=== PATIENT | male | born 1950 | race Caucasian/White ===

== ENCOUNTER 2021-02-05 07:09 | Inpatient (IN) | payer MEDICARE, BC ==
[2021-01-27 16:46] LABS: BASOPHILS % (AUTO) 0.8 % (0-1); EOSINOPHILS # (AUTO) 0.1 X10'3 (0-0.9); EOSINOPHILS % (AUTO) 2.4 % (0-6); LYMPHOCYTES # (AUTO) 2.2 X10'3 (1.1-4.8); LYMPHOCYTES % (AUTO) 42.1 % (21-51); MEAN CORPUSCULAR HEMOGLOBIN 27.5 PG (27.0-31.0); MEAN CORPUSCULAR HGB CONC 32.5 g/dL (33.0-36.5); MEAN CORPUSCULAR VOLUME 84.6 FL (78-98); MEAN PLATELET VOLUME 8.1 FL (7.4-10.4); MONOCYTES # (AUTO) 0.5 X10'3 (0-0.9); MONOCYTES % (AUTO) 9.7 % (2-12); NEUTROPHILS # (AUTO) 2.3 X10'3 (1.8-7.7); PRE OP HEMATOCRIT 39.4 % (42.0-52.0); PRE OP HEMOGLOBIN 12.8 g/dL (14.0-17.9); PRE OP PLATELET COUNT 240 X10'3 (140-440); RED BLOOD COUNT 4.66 X10'6 (4.70-6.10); RED CELL DISTRIBUTION WIDTH 13.7 % (11.5-14.5)
[2021-01-27 17:03] LABS: PRE OP INR 1.1 INR; PRE OP PROTIME 11.4 SECONDS (9.0-12.0)
[2021-01-27 17:07] LABS: ALBUMIN 3.9 G/DL (3.4-5.0); ALBUMIN/GLOBULIN RATIO 1.1 (1.1-1.5); ALKALINE PHOSPHATASE 72 IU/L (46-116); BLOOD UREA NITROGEN 17 MG/DL (7-18); BUN/CREATININE RATIO 12.1 (5.4-32.0); CALCIUM 9.1 MG/DL (8.5-10.1); CHLORIDE 106 MMOL/L (99-107); CREATININE 1.41 MG/DL (0.60-1.10); PRE OP ALT 23 U/L (30-65); PRE OP ANION GAP 8 (8-16); PRE OP AST 15 U/L (10-37); PRE OP BILIRUB, TOTAL 0.5 MG/DL (0.0-1.0); PRE OP GLUCOSE 76 MG/DL (70-104); PRE OP POTASSIUM 4.5 MMOL/L (3.4-5.1); PRE OP SODIUM 143 MMOL/L (135-145); TOTAL CARBON DIOXIDE 29.5 MMOL/L (24-32); TOTAL PROTEIN 7.3 G/DL (6.4-8.2); eGFR 50 ML/MIN
[2021-02-05] VITALS (27 sets, daily range): BP systolic 83–115; BP diastolic 50–76
[~2021-02-05] VITALS: Ht 175.3 cm; Wt 80.0 kg
[~2021-02-05 07:09] MED LIST: CALC-496 PO; LACT1CAP65 PO; OMEG-156 PO; RIVA20TA PO; ROSU5TAB PO; cefazolin/dext.iso 2gm/50ml 50 ML IV ONE; famotidine 20mg tablet PO ONE; ringers solution, lacted 1,000 ML IV SCH; vancomycin 1,500 MG in NS 300ml IV soln IV ONE
[2021-02-05] MEDS ORDERED: tetracaine 1% (10mg/ml) pres. free inj. ONE (07:27)
[2021-02-05] MEDS ORDERED: ondansetron/PF 4mg/2ml inj IV PRN ×2 (08:20→12:05)
[2021-02-05] MEDS ORDERED: morphine 2 MG/ML inj. syringe IV PRN (08:20)
[2021-02-05] MEDS ORDERED: ROPIVAcaine 0.2% (10 MG/5 ML) BOLUS INJECTION ADDCANAL PRN (08:20)
[2021-02-05] MEDS ORDERED: proCHLORperazine 10 MG/2 ml inj IV PRN (08:20)
[2021-02-05] MEDS ORDERED: ringers solution, lacted 1,000 ML IV SCH (08:20)
[2021-02-05] MEDS ORDERED: meperidine/PF 25mg/ml syringe IV PRN ×3 (08:20)
[2021-02-05] MEDS ORDERED: morphine 4 MG/ML inj SYRINge IV PRN (08:20)
[2021-02-05] MEDS ORDERED: vancomycin 1,000mg inj ONE (08:35)
[2021-02-05] MEDS ORDERED: MORPHINE IU ONE (08:35)
[2021-02-05] MEDS ORDERED: EPINEPHRINE IU ONE (08:35)
[2021-02-05] MEDS ORDERED: [UNRECOGNIZED DRUG - OTHER] IU ONE (08:35)
[2021-02-05] MEDS ORDERED: ROPIVACAINE IU ONE (08:35)
[2021-02-05] MEDS ORDERED: TRANEXAMIC ACID 1 GM IN NACL,ISO-OS 100 ML IV ONE (08:40)
[2021-02-05] MEDS ORDERED: MIDAZolam 1mg/ml 10ml vial ONE (09:26)
[2021-02-05] MEDS ORDERED: fentaNYL/PF 50MCG/1 ML 2ML syringe ONE (09:27)
[2021-02-05] MEDS ORDERED: Thrombin (Bovine) 5,000 unit vial TP ONE (09:48)
[2021-02-05] MEDS ORDERED: calcium chloride 100 MG/1 ML inj IV ONE (10:14)
[2021-02-05] MEDS ORDERED: ROPIVAcaine 0.5% (5mg/ml) 30ml vial ONE (11:15)
[2021-02-05] MEDS ORDERED: propofol inj 20 ML IV ONE (11:15)
[2021-02-05] MEDS ORDERED: diphenhydrAMINE 25mg capsule PO PRN ×2 (12:05)
[2021-02-05] MEDS ORDERED: HYDROmorphone 1 mg/ml syringe IV PRN (12:05)
[2021-02-05] MEDS ORDERED: HYDROmorphone inj. 0.5 MG/0.5 ML DISP.SYRIN IV PRN (12:05)
[2021-02-05] MEDS ORDERED: magnesium hydroxide 30ml (MOM) UD suspension PO PRN (12:05)
[2021-02-05] MEDS ORDERED: bisacodyl 10mg suppository rectal RC PRN (12:05)
[2021-02-05] MEDS ORDERED: acetaminophen 325mg tablet PO PRN (12:05)
[2021-02-05] MEDS ORDERED: oxyCODONE IR 5mg (immed. release) tablet PO PRN ×2 (12:05)
[2021-02-05] MEDS: ROPIVAcaine 0.2%/PF PUMP/bolus 545 ML ADDCANAL SCH (12:24)
--- NOTE | 2021-02-05 14:24 | NUR ---
Report called to receiving nurse. Transferred via SURGICAL BED WITH A BAG OF Belongings AND GLASSES. WITH PATIENT. . 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 SCDS ON BILATERALLY. Addendum: 02/05/21 at 1452 by Oscar Santa RN, RN Amended: Links added.
--- NOTE | 2021-02-05 14:27 | NUR ---
Patient in room [facility] IN 900. I have received report from Oscar baker and had the opportunity to ask questions and assume patient care.
[2021-02-05] MEDS: gabapentin 300mg capsule PO SCH ×2 (15:15→20:53)
[2021-02-05] MEDS: ketorolac tromethamine 15mg/ml inj. IV SCH ×2 (15:16→20:55)
[2021-02-05] MEDS: acetaminophen 325mg tablet PO SCH ×2 (15:17→20:53)
[2021-02-05] MEDS: potassium cl 20mEq in 1/2 NS 1,000 ML IV SCH ×2 (15:23→20:05)
[2021-02-05] MEDS: ceFAZolin/D5W- 1GM premix 50 ML IV SCH (15:25)
--- NOTE | 2021-02-05 19:14 | NUR ---
Problems reprioritized. Patient report given, questions answered & plan of care reviewed with Deborah Cabrera rn.
[2021-02-05] MEDS: vancomycin/NS 1 GM ADD-VANTAGE 250 ML IV SCH (20:55)
[2021-02-05] MEDS: sennosides 8.6mg tablet PO SCH (20:59)
[2021-02-06] VITALS: BP 95/57
[2021-02-06] MEDS: ceFAZolin/D5W- 1GM premix 50 ML IV SCH ×3 (00:23→16:23)
[2021-02-06] MEDS: acetaminophen 325mg tablet PO SCH ×4 (03:23→20:36)
[2021-02-06] MEDS: ketorolac tromethamine 15mg/ml inj. IV SCH ×2 (03:24→09:19)
[2021-02-06] MEDS: potassium cl 20mEq in 1/2 NS 1,000 ML IV SCH ×3 (03:28→20:39)
[2021-02-06 04:00] VITALS: BP 96/55
[2021-02-06 06:21] LABS: BASOPHILS % (AUTO) 0.5 % (0-1); EOSINOPHILS # (AUTO) 0.1 X10'3 (0-0.9); EOSINOPHILS % (AUTO) 2.4 % (0-6); HEMATOCRIT 26.2 % (42.0-52.0); HEMOGLOBIN 8.9 g/dl (14.0-17.9); LYMPHOCYTES # (AUTO) 1.5 X10'3 (1.1-4.8); LYMPHOCYTES % (AUTO) 25.1 % (21-51); MEAN CORPUSCULAR HEMOGLOBIN 28.5 PG (27.0-31.0); MEAN CORPUSCULAR VOLUME 83.9 FL (78-98); MEAN PLATELET VOLUME 8.5 FL (7.4-10.4); MONOCYTES # (AUTO) 0.9 X10'3 (0-0.9); MONOCYTES % (AUTO) 14.8 % (2-12); NEUTROPHILS # (AUTO) 3.5 X10'3 (1.8-7.7); NEUTROPHILS % (AUTO) 57.2 % (42-75); PLATELET COUNT 158 X10'3 (140-440); RED BLOOD COUNT 3.13 X10'6 (4.70-6.10); RED CELL DISTRIBUTION WIDTH 13.8 % (11.5-14.5); WHITE BLOOD COUNT 6.2 X10'3 (4.5-11.0)
--- NOTE | 2021-02-06 06:30 | NUR ---
Problems reprioritized. Patient report given, questions answered & plan of care reviewed with TRUDY WARD.
--- NOTE | 2021-02-06 06:41 | NUR ---
Patient in room [facility]. I have received report from Deborah Cabrera RN and had the opportunity to ask questions and assume patient care.
[2021-02-06 07:33] LABS: ANION GAP 7 (8-16); CHLORIDE 108 MMOL/L (99-107); POTASSIUM 4.9 MMOL/L (3.5-5.1); SODIUM 142 MMOL/L (135-145)
[2021-02-06 08:00] VITALS: BP 99/61
[2021-02-06] MEDS: enoxaparin 40mg/0.4ml syringe SQ SCH (09:18)
[2021-02-06] MEDS: calcium carbonate/vitamin D3 tablet PO SCH (09:19)
[2021-02-06] MEDS: OMEGA-3/DHA/EPA/FISH OIL 1 EACH CAPSULE.DR PO SCH (09:20)
[2021-02-06] MEDS: gabapentin 300mg capsule PO SCH ×3 (09:20→20:35)
[2021-02-06] MEDS: vancomycin/NS 1 GM ADD-VANTAGE 250 ML IV SCH (09:21)
[2021-02-06] MEDS: atorvastatin 20mg tablet PO SCH (09:21)
[2021-02-06] MEDS: lactobacillus rhamnosus 10,000 MMU CELLS/CAPSULE PO SCH (09:21)
[2021-02-06 12:00] VITALS: BP 103/66
--- NOTE | 2021-02-06 13:29 | NUR ---
Pt s/p right total knee arthroplasty seen at bedside provided with written and verbal protein education. RD contact information provided and pt encouraged to reach out if needed. Pt endorses a good appetite and denies food allergies or difficulty chewing/swallowing. Will continue to follow. Addendum: 02/06/21 at [address] Amended: Links added.
--- NOTE | 2021-02-06 18:40 | NUR ---
Problems reprioritized. Patient report given, questions answered & plan of care reviewed with Sarai WARD.
[2021-02-06 20:00] VITALS: BP 124/72
[2021-02-06 20:25] LABS: HEMATOCRIT 25.8 % (42.0-52.0); HEMOGLOBIN 8.9 g/dl (14.0-17.9); MEAN CORPUSCULAR HGB CONC 34.5 g/dL (33.0-36.5)
[2021-02-06 20:26] LABS: MEAN CORPUSCULAR HEMOGLOBIN 28.8 PG (27.0-31.0); MEAN CORPUSCULAR VOLUME 83.3 FL (78-98); MEAN PLATELET VOLUME 8.8 FL (7.4-10.4); PLATELET COUNT 163 X10'3 (140-440); RED CELL DISTRIBUTION WIDTH 13.9 % (11.5-14.5); WHITE BLOOD COUNT 5.6 X10'3 (4.5-11.0)
[2021-02-06] MEDS: sennosides 8.6mg tablet PO SCH (20:35)
[2021-02-06] MEDS: celeCOXIB 100mg capsule PO SCH (20:36)
[2021-02-07] VITALS: BP 124/73
[2021-02-07] MEDS: acetaminophen 325mg tablet PO SCH ×2 (01:51→08:42)
--- NOTE | 2021-02-07 06:02 | NUR ---
Problems reprioritized. Patient report given, questions answered & plan of care reviewed with ED Ballesteros.
--- NOTE | 2021-02-07 06:04 | NUR ---
Patient in room [facility]. I have received report from Sarai WARD and had the opportunity to ask questions and assume patient care.
[2021-02-07 06:29] LABS: BASOPHILS % (AUTO) 0.4 % (0-1); EOSINOPHILS # (AUTO) 0.3 X10'3 (0-0.9); EOSINOPHILS % (AUTO) 4.7 % (0-6); HEMATOCRIT 25.7 % (42.0-52.0); HEMOGLOBIN 8.6 g/dl (14.0-17.9); LYMPHOCYTES # (AUTO) 1.1 X10'3 (1.1-4.8); LYMPHOCYTES % (AUTO) 18.7 % (21-51); MEAN CORPUSCULAR HEMOGLOBIN 28.2 PG (27.0-31.0); MEAN CORPUSCULAR HGB CONC 33.3 g/dL (33.0-36.5); MEAN CORPUSCULAR VOLUME 84.8 FL (78-98); MEAN PLATELET VOLUME 8.7 FL (7.4-10.4); MONOCYTES # (AUTO) 0.7 X10'3 (0-0.9); MONOCYTES % (AUTO) 12.1 % (2-12); NEUTROPHILS # (AUTO) 3.9 X10'3 (1.8-7.7); NEUTROPHILS % (AUTO) 64.1 % (42-75); PLATELET COUNT 154 X10'3 (140-440); RED BLOOD COUNT 3.03 X10'6 (4.70-6.10); RED CELL DISTRIBUTION WIDTH 14.1 % (11.5-14.5); WHITE BLOOD COUNT 6.1 X10'3 (4.5-11.0)
[2021-02-07 08:00] VITALS: BP 112/71
[2021-02-07] MEDS: OMEGA-3/DHA/EPA/FISH OIL 1 EACH CAPSULE.DR PO SCH (08:41)
[2021-02-07] MEDS: celeCOXIB 100mg capsule PO SCH (08:43)
[2021-02-07] MEDS: calcium carbonate/vitamin D3 tablet PO SCH (08:43)
[2021-02-07] MEDS: lactobacillus rhamnosus 10,000 MMU CELLS/CAPSULE PO SCH (08:43)
[2021-02-07] MEDS: gabapentin 300mg capsule PO SCH ×2 (08:43→13:00)
[2021-02-07] MEDS: atorvastatin 20mg tablet PO SCH (08:43)
[2021-02-07] MEDS: potassium cl 20mEq in 1/2 NS 1,000 ML IV SCH (08:44)
[2021-02-07] MEDS: enoxaparin 40mg/0.4ml syringe SQ SCH (08:45)
[2021-02-07 11:00] VITALS: BP 104/65
[2021-02-07] MEDS ORDERED: acetaminophen 325mg tablet PO PRN (12:05)
[2021-02-07] MEDS: ROPIVAcaine 0.2%/PF PUMP/bolus 545 ML ADDCANAL SCH (14:05)
--- NOTE | 2021-02-07 16:20 | NUR ---
Patient discharge in stable condition, IV was taken out, no swelling, no redness not. Discharge instruction given to patient/spouse to include care/ management of On-Q pain pump. Patient/spouse verbalized understanding of instruction given. Patient left unit using a wheelchair, accompany by spouse to a private vehicle.
== END 2021-02-07 16:15 | disposition home or self-care (01) | DRG 470 ==
LOC: PAS IN 07:09 → UNDOADMIN 07:09 → PAS IN 12:11 → SUR 3N 15:20
PROVIDERS: ADMIT Orthopaedic Surgery; ATTEND Orthopaedic Surgery
PROC: 0SRC0J9 Replacement of Right Knee Joint with Synthetic Substitute, Cemented, Open Approach (ICD-10-PCS; principal; 2021-02-05 09:24)
DX: M17.11 Unilateral primary osteoarthritis, right knee (principal); D62 Acute posthemorrhagic anemia; D75.9 Disease of blood and blood-forming organs, unspecified; M25.761 Osteophyte, right knee; Z20.822 Contact with and (suspected) exposure to COVID-19
CPT/HCPCS: 36415; 73560; 80051; 80053; 82948; 85025; 85027; 85610; 85730; 87081; 97110; 97116; 97161; 97530; A4215; A7000; C1713; C1776; G0378; J0690; J1650; J1885; J2250; J2405; J2704; J2795; J3010; J3370; J3480; J7040; J7120; U0003; U0005